=== PATIENT | female | born 2000 | race Caucasian/White ===

== ENCOUNTER 2021-04-24 07:33 | Emergency (ER) | payer OTHER ==
[~2021-04-24] VITALS: Ht 172.7 cm; Wt 59.0 kg
[2021-04-24] MEDS ORDERED: BUSPIRONE HCL5 MG PO (07:50)
[2021-04-24] MEDS ORDERED: CABERGOLINE 0.0.5 MG PO (07:51)
[2021-04-24] MEDS ORDERED: AUGMENTIN 875-1 EACH PO (07:54)
[2021-04-24 07:59] VITALS: BP 125/80
== END 2021-04-24 08:06 | disposition home or self-care (01) ==
LOC: ER 07:33
DX: J32.0 Chronic maxillary sinusitis (principal); J32.1 Chronic frontal sinusitis